=== PATIENT | female | born 1990 | race Asian ===

== ENCOUNTER 2022-03-20 18:15 | Emergency (ER) | payer MEDICAID ==
[~2022-03-20] VITALS: Ht 157.5 cm; Wt 62.2 kg
[2022-03-20 18:23] VITALS: TEMP 98
[2022-03-20 18:57] LABS: BASO % 0.5 % (0.0-2.0); EOS # 0.1 K/mm3 (0.0-0.7); EOS % 1.2 % (0.0-4.0); GRAN # 4.2 K/mm3 (1.4-6.5); GRAN % 65.3 % (42.2-75.2); HEMOGLOBIN 11.5 g/dl (12.5-16.0); LYMPH # 1.8 K/mm3 (1.2-3.4); MEAN CELL VOLUME 86 fl (80.0-100.0); MEAN CORPUSCULAR HEMOGLOBIN 31 pg (27-31); MEAN CORPUSCULAR HGB CONC 36 g/dl (33.0-37.0); MEAN PLATELET VOLUME 10.2 fl (7.4-10.4); MONO # 0.3 K/mm3 (0.1-0.6); MONO % 4.5 % (1.7-9.3); PLATELET COUNT 203 K/mm3 (130-400); RED BLOOD COUNT 3.76 M/mm3 (4.10-5.30); REDCELL DISTRIBUTION WIDTH-CV 13.2 % (11.5-14.5)
[2022-03-20 18:59] LABS: HEMATOCRIT 32.3 % (37.0-47.0)
[2022-03-20 19:14] LABS: ALBUMIN 2.9 gm/dL (3.5-5.0); BILIRUBIN,TOTAL 0.3 mg/dL (0.2-1.2); C-REACTIVE PROTEIN 0.17 mg/dL (0.00-0.50); CREATININE, serum 0.59 mg/dL (0.57-1.11); POTASSIUM 3.3 mmol/L (3.5-4.5); TOTAL PROTEIN 6.3 gm/dL (6.2-8.1)
--- NOTE | 2022-03-20 19:39 | NUR ---
PATIENT RESTING COMFORTABLY UPON LD RN ARRIVAL. PATIENT CC N/V. PATIENT DENIES LEAKING OF FLUID, CONTRACTIONS OR BLOODY SHOW. PLAN OF CARE DISCUSSED. PATIENT PLACED ON EFM.
[2022-03-20] MEDS ORDERED: ZOFRAN ODT4 MG PO (20:05)
[2022-03-20 20:36] VITALS: BP 108/65; PULSE 74
== END 2022-03-20 20:43 | disposition home or self-care (01) ==
LOC: COL.ER 18:15
PROVIDERS: Emergency Medicine
DX: O21.9 Vomiting of pregnancy, unspecified (principal); O26.893 Other specified pregnancy related conditions, third trimester; E87.6 Hypokalemia; O24.419 Gestational diabetes mellitus in pregnancy, unspecified control; Z3A.00 Weeks of gestation of pregnancy not specified
CPT/HCPCS: J2405; J2550; J7030

== ENCOUNTER → 2022-04-08 | Outpatient (CLI) | payer MEDICAID ==
[~2022-04-08] MED LIST: ZOFRAN ODT4 MG PO
== END ==
LOC: DIA.ED 07:31
DX: O24.419 Gestational diabetes mellitus in pregnancy, unspecified control (principal)
CPT/HCPCS: G0108

== ENCOUNTER → 2022-04-20 | Outpatient (CLI) | payer MEDICAID ==
[~2022-04-20] MED LIST changes: +IBU800 M1 PO; +PRENATAL; +PROZAC 20MG20 MG PO
[2022-05-13] VITALS (214 sets, daily range): O2SAT 94–100
== END ==
LOC: DIA.ED 12:55
DX: O24.419 Gestational diabetes mellitus in pregnancy, unspecified control (principal)
CPT/HCPCS: G0108

== ENCOUNTER → 2022-05-05 | Outpatient (CLI) | payer MEDICAID ==
[~2022-05-05] VITALS: Ht 157.5 cm; Wt 64.1 kg
[~2022-05-05] MED LIST changes: -IBU800 M1 PO
--- NOTE | 2022-05-05 14:59 | NUR ---
Pt arrived on unit ambulatory escorted by and with concerns for contractions. Pt is non-lebanese speaking, using a [employer] migratory worker pt reports feeling pain since last night, denies any leaking of fluid or vaginal bleeding and reports normal movement. EFM and toco monitors started. Vital signs WNL. SVE by this RN . Information reviewed with Dr. Sandra. See physician notifications for details.
--- NOTE | 2022-05-05 16:15 | NUR ---
Using a hungarian director of medical staff services, discharge instructions and follow up care reviewed with pt and at the bedside. Both verbalized an understanding, agreed with the plan and states no questions or concerns at this time.
[2022-05-05 16:18] VITALS: BP 128/72; PULSE 55
== END ==
LOC: LDRO 14:49
DX: Z34.93 Encounter for supervision of normal pregnancy, unspecified, third trimester (principal); Z3A.39 39 weeks gestation of pregnancy

== ENCOUNTER 2022-05-11 12:30 | Inpatient (IN) | payer MEDICAID ==
[~2022-05-11] VITALS: Ht 157.5 cm; Wt 57.9 kg
[2022-05-11] VITALS (19 sets, daily range): BP systolic 81–130; BP diastolic 44–88; PULSE 59–102; TEMP 97.6–97.9
[~2022-05-11 12:30] MED LIST changes: -PROZAC 20MG20 MG PO
--- NOTE | 2022-05-11 12:40 | NUR ---
PT ARRIVES AMBULATORY TO UNIT C/O VAGINAL BLEEDING AND "LEAKING FLUID" SINCE LAST NIGHT AT APPROXIMATELY 2030, REPORTS CLEAR FLUID. ROLES AT BEDSIDE ASSESSING PATIENT. PT UNABLE TO SPEAK ANDORRAN, PROFESSIONAL INTERPRETOR ON DEVICE TO INTERPRET VIETNAMESE LANGUAGE. AT BEDSIDE AND ABLE TO SPEAK MINIMAL ANDORRAN. VORB TO ADMIT PT FOR LABOR AND DELIVERY PER ROLES. EFM TRACING CATEGORY 1 STRIP, CONTRACTIONS Q 3-5 MINS
[2022-05-11] MEDS ORDERED: PROZAC 20MG20 MG PO (13:06)
--- NOTE | 2022-05-11 13:30 | NUR ---
PT SITTING ON EDGE OF BED IN PREPARATION FOR EPIDURAL PLACEMENT. DIFFICULTY TRACING EFM/TOCO DUE TO MATERNAL POSITIONING. ALL CONSENTS SIGNED AND EXPLAINED IN FULL VIA PROFESSIONAL TRANSLATION SERVICE, ISRAEL WALTER CRNA REVIEWS EPIDURAL PROCEDURE AND RISKS IN FULL VIA PROFESSIONAL TRANSLATION SERVICE. PT AND FOB DENY FURTHER QUESTIONS OR CONCERNS. 1342: TEST DOSE PER ISRAEL WALTER CRNA. PT TOLERATED PROCEDURE WELL.
[2022-05-11 13:42] LABS: BASO % 0.5 % (0.0-2.0); EOS # 0.1 K/mm3 (0.0-0.7); EOS % 1.1 % (0.0-4.0); GRAN # 4.3 K/mm3 (1.4-6.5); HEMOGLOBIN 12.4 g/dl (12.5-16.0); LYMPH # 1.9 K/mm3 (1.2-3.4); LYMPH % 28.2 % (20.0-51.0); MEAN CELL VOLUME 87 fl (80.0-100.0); MEAN CORPUSCULAR HEMOGLOBIN 30 pg (27-31); MEAN CORPUSCULAR HGB CONC 35 g/dl (33.0-37.0); MEAN PLATELET VOLUME 10.8 fl (7.4-10.4); MONO # 0.3 K/mm3 (0.1-0.6); MONO % 4.4 % (1.7-9.3); PLATELET COUNT 215 K/mm3 (130-400); RED BLOOD COUNT 4.11 M/mm3 (4.10-5.30); REDCELL DISTRIBUTION WIDTH-CV 13.6 % (11.5-14.5)
[2022-05-11 13:44] LABS: HEMATOCRIT 35.8 % (37.0-47.0)
--- NOTE | 2022-05-11 15:15 | NUR ---
1515: PT AGREEABLE TO SVE BY THIS NURSE, ALL COMMUNICATION VIA PROFESSIONAL TRANSLATION SYSTEM. PT /+2, BULGING FOREBAG NOTED WITH CHECK. RUPTURES WITH ASSESSMENT. PT COMPLETE FOLLOWING RUPTURE AND NOTIFIED. (SEE PHYS NOTIFICATION) 1532: OF VIABLE FEMALE INFANT PER AT THIS TIME. TIGHT NUCHAL X1 AT DELIVERY. FOB IN WAITING ROOM FOR CULTURAL PURPOSES. PT TOLERATED LABOR AND DELIVERY WELL. SMILING AFFECT. LOCHIA MODERATE AT DELIVERY. VORB FOR IM METHERGINE X1 PER , CHARGE NURSE NOTIFIED. 1536: OF PLACENTA. LOCHIA MODERATE, SMALL CLOTS NOTED. FUNDUS FIRM AT UMBILICUS WITH MASSAGE. IM METHERGINE ADMINISTERED PER ORDER. PERINEUM INTACT UPON ASSESSMENT FOLLOWING DELIVERY. PITOCIN BOLUS INFUSING PER PROTOCOL. LR INFUSING. VITAL SIGNS STABLE. PROFESSIONAL INTERPRETOR REMAINS AVAILABLE THROUGHOUT DELIVERY, PT DENIES QUESTIONS OR CONCERNS AT THIS TIME. 1545: LOCHIA CONTROLLED, FUNDUS FIRM AT UMBILICUS. NO CLOTS NOTED WITH MASSAGE. PITOCIN CONTINUES INFUSING. PT DENIES PAIN. PT DENIES NEEDS PER PROFESSIONAL INTERPRETOR. VITAL SIGNS STABLE. WILL CONTINUE WITH CARES PER PROTOCOL. FOB NOTIFIED IN WAITING ROOM OF DELIVERY AND COMES TO THE DELIVERY ROOM. PRESENT AND SUPPORTIVE OF MOTHER UPON ARRIVAL TO DELIVERY ROOM.
--- NOTE | 2022-05-11 16:30 | NUR ---
THIS NURSE ENCOURAGES PT TO EAT AND DRINK. PT AGREEABLE TO WATER BUT REFUSING MEAL AT HOSPITAL. STATES HE IS GOING TO GO HOME AND BRING IN FOOD FOR HER. FOB LEAVES AT THIS TIME TO GET FOOD. PT DENIES FURTHER NEEDS AT THIS TIME.
--- NOTE | 2022-05-11 17:49 | NUR ---
PT IN BED EATING MEAL PROVIDED BY AT THIS TIME. LOCHIA SCANT, FUNDUS REMAINS FIRM, VITAL SIGNS STABLE. WILL MOVE TO ROOM FOLLOWING MEAL PER PT REQUEST. PO TYLENOL, MOTRIN, AND STOOL SOFTENER GIVEN AT THIS TIME.
[2022-05-12] VITALS (256 sets, daily range): BP systolic 97–138; BP diastolic 68–88; PULSE 45–82; TEMP 97.1–97.9; O2SAT 96–100
--- NOTE | 2022-05-12 05:15 | NUR ---
PT REQUESTS STRONGER PAIN MED. SHE STATES SHE IS HAVING CRAMPING AND SHE WANTS TO TRY AND SLEEP NOW AFTER SHE FED THE BABY. DR ROLES NOTIFIED AND ORDERS NOTED. SEE MAR SHEET.
[2022-05-12] MEDS ORDERED: IBU800 M1 PO (11:29)
--- NOTE | 2022-05-12 18:35 | NUR ---
1835-PTS STATED PT IS UNRESPONSIVE. RN TO ROOM AND PT UNRESPONSIVE TO VOICE AND TO STERNAL RUB AND TACTILE STIMULATION. LV=338/88 PULSE=49 AND O2 SATS-99-100% ON RM AIR. GOOD RESP EFFORT NOTED DURING UNRESPONSIVE EPISODE. AT BEDSIDE AND RNS TO ROOM. STILL NO RESPONSE AFTER 5MIN AND DRIER HELPER NOTIFIED AND TO ROOM. GOOD RESP EFFORT AND VITALS NOTED AT THIS TIME. 184-BP-134/79 PULSE-45 AND SATS 99% ON RM AIR. 184- PT SHOWING SOME RESPONSE TO VOICE AND BP-133/76 PULSE-77 AND SATS-97% ON ROOM EFFORT WITH GOOD RESP EFFORT NOTED. HEART RATE INCREASES TO 80S AND THEN DECREASES TO 40-50'S AND NOTED ON PULSE OX. 185-IV ACCESS ATTAINED IN L HAND AND DR PETERSON NOTIFIED. 190-PT TO CT FOR CT OF HEAD AND CBC AND CMP DRAWN AT THIS TIME AND SENT TO LAB.
[2022-05-12 19:16] LABS: BASO # 0.1 K/mm3 (0.0-0.2); BASO % 0.6 % (0.0-2.0); EOS # 0.1 K/mm3 (0.0-0.7); EOS % 1.6 % (0.0-4.0); GRAN # 5.6 K/mm3 (1.4-6.5); GRAN % 68.7 % (42.2-75.2); HEMATOCRIT 32.6 % (37.0-47.0); HEMOGLOBIN 11.1 g/dl (12.5-16.0); LYMPH % 24.1 % (20.0-51.0); MEAN CELL VOLUME 88 fl (80.0-100.0); MEAN CORPUSCULAR HEMOGLOBIN 30 pg (27-31); MEAN CORPUSCULAR HGB CONC 34 g/dl (33.0-37.0); MEAN PLATELET VOLUME 10.3 fl (7.4-10.4); MONO # 0.4 K/mm3 (0.1-0.6); MONO % 4.5 % (1.7-9.3); PLATELET COUNT 186 K/mm3 (130-400); REDCELL DISTRIBUTION WIDTH-CV 13.7 % (11.5-14.5)
--- NOTE | 2022-05-12 19:30 | NUR ---
1929-REPORT GIVEN TO EQUITIES TRADER AND TO PHYSICIAN.
[2022-05-12 19:46] LABS: ALBUMIN 2.3 gm/dL (3.5-5.0); ALKALINE PHOSPHATASE 146 U/L (40-150); ANION GAP 11 mmol/L (7-16); AST,SGOT 14 U/L (5-34); BILIRUBIN,TOTAL 0.2 mg/dL (0.2-1.2); BLOOD UREA NITROGEN 8 mg/dL (7-19); CALCIUM 8.5 mg/dL (8.4-10.2); CARBON DIOXIDE 18 mmol/L (22-29); CHLORIDE 109 mmol/L (98-107); CREATININE, serum 0.74 mg/dL (0.57-1.11); GLUCOSE 109 mg/dL (70-99); POTASSIUM 3.6 mmol/L (3.5-4.5); SODIUM 138 mmol/L (136-145); TOTAL PROTEIN 5.5 gm/dL (6.2-8.1)
[2022-05-12 19:47] LABS: ALANINE AMINOTRANSFERASE < 6 U/L (0-55)
[2022-05-13] VITALS (285 sets, daily range): BP systolic 95–110; BP diastolic 59–81; PULSE 69–76; TEMP 97.7–98.7; O2SAT 96–100
[2022-05-13 06:18] LABS: BASO % 0.5 % (0.0-2.0); EOS # 0.1 K/mm3 (0.0-0.7); EOS % 1.8 % (0.0-4.0); GRAN # 4.5 K/mm3 (1.4-6.5); HEMOGLOBIN 10.7 g/dl (12.5-16.0); LYMPH # 2.7 K/mm3 (1.2-3.4); LYMPH % 34.7 % (20.0-51.0); MEAN CELL VOLUME 88 fl (80.0-100.0); MEAN CORPUSCULAR HEMOGLOBIN 30 pg (27-31); MEAN CORPUSCULAR HGB CONC 34 g/dl (33.0-37.0); MEAN PLATELET VOLUME 10.3 fl (7.4-10.4); MONO # 0.3 K/mm3 (0.1-0.6); MONO % 4.4 % (1.7-9.3); PLATELET COUNT 173 K/mm3 (130-400); RED BLOOD COUNT 3.57 M/mm3 (4.10-5.30); REDCELL DISTRIBUTION WIDTH-CV 13.6 % (11.5-14.5)
[2022-05-13 06:30] LABS: HEMATOCRIT 31.5 % (37.0-47.0)
[2022-05-13 06:40] LABS: CALCIUM 7.8 mg/dL (8.4-10.2); CREATININE, serum 0.73 mg/dL (0.57-1.11); MAGNESIUM 1.7 mg/dL (1.6-2.6); POTASSIUM 3.8 mmol/L (3.5-4.5)
--- NOTE | 2022-05-13 07:00 | NUR ---
BEDSIDE REPORT RECEIVED FROM CODY LANE. REPORTS NO EVENTS OVERNIGHT. PT SLEPT MAJORITY OF NIGHT AND OFFERED MINIMAL COMPLAINTS. C/O SOME LOWER ABDOMINAL CRAMPING. LIES SUPINE WITH HOB ELEVATED. NO S/S DISCOMFORT. PT'S AT THE BEDSIDE.
--- NOTE | 2022-05-13 09:33 | NUR ---
JANEL met with the patient to discuss discharge plan and to check resources. The patient is a refugee from [place] and moved here three months ago with her family. The patient speaks Slovenian. The patient delivered a baby girl on 05/11. She transferred to the ICU after becoming unresponsive. SW utilized the [employer] Bottle Packing Machine Cleaner services to translate. The patient lives in [place] with her , Arleth, and their seven children. She states that she now has six boys and two girls. She states that her is not working yet. She states that they have a carseat for baby, but they do not have a crib, bassinet, or Pack 'N Play for baby yet. She states that they do not have diapers or bottles for baby yet either, but that her plans to purchase the diapers and bottles before baby discharges from the hospital. She would be interested in getting help for the bassinet/pack 'n play. She had no other questions or concerns for nephrology social worker. JANEL provided her with [facility]'s Resource Guide. JANEL contacted Edna at [facility] about the pack 'n play/bassinet and additional assistance through their programs. Edna reports that she will get the patient enrolled in their porgram and she will deliver a baby starter kit to the hospital today. She states that she may not get the pack 'n play delivered today, but can deliver this to patient at a later time. She states that they will continue to drop off supplies to the patient, that they need until baby is 6 months old and they will continue to see her for their diaper program. Edna plans to contact this SW, once she delivers the supplies to the hospital. JANEL updated the patient's RN.
--- NOTE | 2022-05-13 11:36 | NUR ---
HOSPITALIST ROUNDS COMPLETED USES EXTENSION ASSOCIATE. EXTENSION ASSOCIATE NAME: GELY. SESSION ID: [id number].
--- NOTE | 2022-05-13 12:40 | NUR ---
Edna, with [facility], reports that she was able to get the Pack 'n Play and she delivered this and two bags of other baby supplies to the hospital. Bailee was going to deliver it to the nursery. JANEL contacted Mary in the nursery and she confirms they received the supplies.
--- NOTE | 2022-05-13 17:20 | NUR ---
PT AND GIVEN DISCHARGE INSTRUCTIONS WITH THE ASSISTANCE OF [facility] AND OB NURSE NIDIA. PT INSTRUCTED TO CALL [facility] TOMORROW AND SCHEDULE A FOLLOW UP APPOINTMENT WITH THEM DUE TO ABNORMAL ECHOCARDIOGRAM. PT AND VOICE UNDERSTANDING. ALL OB DISCHARGE INSTRUCTIONS COMPLETED BY CODY JACOB.
--- NOTE | 2022-05-13 17:41 | NUR ---
1700 -DISCHARGE INSTRUCTIONS GIVEN TO PT AND VIA VOYCE TIMBER SETTER LINE, VOICES GOOD UNDERSTANDING OF INSTRUCTIONS
--- NOTE | 2022-05-13 17:57 | NUR ---
1750 - DISMISSED AMBULATORY WITH AND BABY IN STABLE CONDITION
== END 2022-05-13 17:05 | disposition home or self-care (01) | DRG 806 ==
LOC: LDRO 12:30 → OB 12:53 → LDR 12:53 → OB 05-12 08:40 → ICU 05-12 19:00
PROVIDERS: Obstetrics & Gynecology; Physician Assistant; ADMIT Obstetrics & Gynecology
PROC: 10E0XZZ Delivery of Products of Conception, External Approach (ICD-10-PCS; principal; 2022-05-11)
DX: O99.344 Other mental disorders complicating childbirth (principal); O72.1 Other immediate postpartum hemorrhage; Z37.0 Single live birth; O69.81X0 Labor and delivery complicated by cord around neck, without compression, not applicable or unspecified; F32.A Depression, unspecified; O90.89 Other complications of the puerperium, not elsewhere classified; R55 Syncope and collapse; Z3A.40 40 weeks gestation of pregnancy
CPT/HCPCS: J0690; J2210; J2590; J3475; J7120

== ENCOUNTER 2022-05-21 16:52 | Day surgery (SDC) | payer MEDICAID ==
[2022-05-21] VITALS (9 sets, daily range): BP systolic 99–121; BP diastolic 57–86; PULSE 61–87; TEMP 97.9
[~2022-05-21 16:52] MED LIST changes: +IBU800 M1 PO; +PROZAC 20MG20 MG PO
--- NOTE | 2022-05-21 17:45 | NUR ---
1745- SPO2 98% ON ROOM AIR 1750- PT PROVIDED A BREAST PUMP AND INSTRUCTED HOW TO USE.
[2022-05-21] MEDS ORDERED: IBU800 M1 PO (20:29)
[2022-05-21] MEDS ORDERED: MACROBID 1100 MG/CAP PO (20:30)
--- NOTE | 2022-05-21 20:30 | NUR ---
Pt to room 222 by hospital bed with Surgery RN x 2 and Sol Roblero CRNA. Bedside report received. Lactated Ringers infusing by gravity to IV in left hand. Pt sleepy at this time be arousable. Plan of care reviewed with .
--- NOTE | 2022-05-21 21:05 | NUR ---
HR alarming on vitals machine reading 40 bpm. Pt alert and resting in bed, all other vitals within normal limits. Heart rhythm auscultated and sounds irregular at times. Telemetry notified and states she is in normal sinus rhythm at a rate of around 60 bpm with occasional PJC's.
--- NOTE | 2022-05-21 23:00 | NUR ---
Pt able to keep food down and ambulated to bathroom. Able to void 200 with small amount of bleeding noted. [employer] Marketing Analyst services used to review discharge instructions, pt and spouse verbalized understanding. 2310 - Pt and spouse seen ambulating off unit with belongings.
== END 2022-05-21 23:10 | disposition home or self-care (01) ==
LOC: OB 16:52 → SDCO 16:52 → OB 16:53 → SDCO 20:00
DX: O72.2 Delayed and secondary postpartum hemorrhage (principal); N39.0 Urinary tract infection, site not specified; O90.3 Peripartum cardiomyopathy
CPT/HCPCS: OP; J2704; J3010; J7120

== ENCOUNTER 2022-07-04 19:50 | Emergency (ER) | payer MEDICAID ==
[~2022-07-04 19:50] MED LIST changes: +MACROBID 1100 MG/CAP PO
[2022-07-04 20:16] LABS: BASO % 0.3 % (0.0-2.0); EOS % 0.2 % (0.0-4.0); GRAN # 5.1 K/mm3 (1.4-6.5); GRAN % 86.4 % (42.2-75.2); HEMOGLOBIN 11.9 g/dl (12.5-16.0); LYMPH # 0.6 K/mm3 (1.2-3.4); LYMPH % 10.2 % (20.0-51.0); MEAN CELL VOLUME 90 fl (80.0-100.0); MEAN CORPUSCULAR HEMOGLOBIN 29 pg (27-31); MEAN CORPUSCULAR HGB CONC 32 g/dl (33.0-37.0); MEAN PLATELET VOLUME 10.7 fl (7.4-10.4); MONO # 0.2 K/mm3 (0.1-0.6); MONO % 2.7 % (1.7-9.3); PLATELET COUNT 150 K/mm3 (130-400); RED BLOOD COUNT 4.09 M/mm3 (4.10-5.30); REDCELL DISTRIBUTION WIDTH-CV 12.2 % (11.5-14.5)
[2022-07-04 20:35] LABS: ALANINE AMINOTRANSFERASE 17 U/L (0-55); ALBUMIN 3.7 gm/dL (3.5-5.0); ALKALINE PHOSPHATASE 76 U/L (40-150); ANION GAP 10 mmol/L (7-16); AST,SGOT 23 U/L (5-34); BILIRUBIN,TOTAL 0.3 mg/dL (0.2-1.2); BLOOD UREA NITROGEN 9 mg/dL (7-19); CALCIUM 8.7 mg/dL (8.4-10.2); CARBON DIOXIDE 16 mmol/L (22-29); CHLORIDE 108 mmol/L (98-107); CREATININE, serum 0.85 mg/dL (0.57-1.11); GLUCOSE 113 mg/dL (70-99); HEMATOCRIT 36.8 % (37.0-47.0); MAGNESIUM 1.5 mg/dL (1.6-2.6); POTASSIUM 4.4 mmol/L (3.5-4.5); SODIUM 134 mmol/L (136-145); TOTAL PROTEIN 6.8 gm/dL (6.2-8.1)
[2022-07-04 20:51] LABS: COLLECTION METHOD CLEAN CATCH
[2022-07-04 20:55] LABS: TSH w REFLEX 0.641 uIU/mL (0.350-4.940)
[2022-07-04 20:56] LABS: TROPONIN-I < 0.010 ng/mL (0.00-0.033)
[2022-07-04 20:57] LABS: URINE APPEARANCE Clear (CLEAR/HAZY); URINE BLOOD TRACE-INTACT (NEGATIVE); URINE COLOR Straw (YELLOW); URINE GLUCOSE Negative (NEGATIVE); URINE KETONE Negative (NEGATIVE); URINE NITRATE Negative (NEGATIVE); URINE PROTEIN(semi-quant) Negative (NEGATIVE); URINE UROBILINOGEN 0.2 E.U/dL (0.2-1.0)
[2022-07-04 20:58] LABS: SQUAMOUS EPITHELIAL 0-2 /hpf (0-10); URINE BACTERIA None Seen /hpf (NONE SEEN); URINE RBC None Seen /hpf (0-2)
[2022-07-04 22:06] VITALS: TEMP 98.7
[2022-07-04 22:54] VITALS: BP 120/96; PULSE 101
[2022-07-10] MEDS ORDERED: IBU800 M1 PO (09:00)
== END 2022-07-04 22:52 | disposition home or self-care (01) ==
LOC: COL.ER 19:50
PROVIDERS: Emergency Medicine
DX: K52.9 Noninfective gastroenteritis and colitis, unspecified (principal); I49.9 Cardiac arrhythmia, unspecified; K83.8 Other specified diseases of biliary tract; E87.2 Acidosis; E83.42 Hypomagnesemia; Z20.822 Contact with and (suspected) exposure to COVID-19
CPT/HCPCS: J7120; Q9967

== ENCOUNTER 2022-07-06 11:43 | Observation (INO) | payer MEDICAID ==
[~2022-07-06] VITALS: Ht 152.4 cm; Wt 65.9 kg
[2022-07-06 12:11] LABS: HEMATOCRIT 37.5 % (37.0-47.0); HEMOGLOBIN 12.6 g/dl (12.5-16.0); MEAN CELL VOLUME 87 fl (80.0-100.0); MEAN CORPUSCULAR HEMOGLOBIN 29 pg (27-31); MEAN CORPUSCULAR HGB CONC 34 g/dl (33.0-37.0); MEAN PLATELET VOLUME 10.4 fl (7.4-10.4); PLATELET COUNT 131 K/mm3 (130-400); RED BLOOD COUNT 4.32 M/mm3 (4.10-5.30); REDCELL DISTRIBUTION WIDTH-CV 12.5 % (11.5-14.5)
[2022-07-06 12:25] LABS: BAND 45 % (0-10); LYMPHOCYTE 13 % (20.0-51.0); NEUTROPHILS 41 % (42.0-75.2); PLATELET ESTIMATE NORMAL (NORMAL)
[2022-07-06 12:29] LABS: ALANINE AMINOTRANSFERASE 14 U/L (0-55); ALBUMIN 3.7 gm/dL (3.5-5.0); ALKALINE PHOSPHATASE 77 U/L (40-150); ANION GAP 13 mmol/L (7-16); AST,SGOT 15 U/L (5-34); BILIRUBIN,TOTAL 0.4 mg/dL (0.2-1.2); BLOOD UREA NITROGEN 11 mg/dL (7-19); CALCIUM 8.6 mg/dL (8.4-10.2); CARBON DIOXIDE 15 mmol/L (22-29); CHLORIDE 107 mmol/L (98-107); CREATININE, serum 0.84 mg/dL (0.57-1.11); GLUCOSE 101 mg/dL (70-99); LIPASE 19 U/L (8-78); POTASSIUM 3.2 mmol/L (3.5-4.5); SODIUM 135 mmol/L (136-145); TOTAL PROTEIN 7.2 gm/dL (6.2-8.1)
[2022-07-06 12:38] LABS: TROPONIN-I < 0.010 ng/mL (0.00-0.033)
[2022-07-06] MEDS ORDERED: COREG 3.123.125 MG/T PO (13:27)
[2022-07-06] MEDS ORDERED: CLEOCIN HC150 MG/CAP PO (13:27)
[2022-07-06 13:53] LABS: COLLECTION METHOD CLEAN CATCH
[2022-07-06 14:18] LABS: SQUAMOUS EPITHELIAL 0-2 /hpf (0-10); URINE BACTERIA Rare /hpf (NONE SEEN); URINE RBC 0-2 /hpf (0-2)
[2022-07-06 14:19] LABS: PH 6.5 (5.0-8.5); URINE APPEARANCE Clear (CLEAR/HAZY); URINE COLOR Yellow (YELLOW); URINE GLUCOSE Negative (NEGATIVE); URINE KETONE TRACE (NEGATIVE); URINE PROTEIN(semi-quant) Negative (NEGATIVE)
[2022-07-06 14:20] LABS: URINE BLOOD 2+ (NEGATIVE); URINE NITRATE Negative (NEGATIVE); URINE UROBILINOGEN 0.2 E.U/dL (0.2-1.0)
[2022-07-06 16:39] VITALS: BP 105/78; PULSE 90; TEMP 98.7
--- NOTE | 2022-07-06 17:59 | NUR ---
Vancomycin Initial Dosing Pharmacy Note Ordering provider: Gina Zamora E., MD Indication/duration: ? Meningitis LABS: WBC 3.9, SCR 0.84, CRCL ~80 Recommendation: VANCOMYCIN 17 MG/KG Loading dose: 1.25 grams Maintenance dose: 1 gram every 8 hours Trough goal: 15-20 ug/mL. TROUGH 07/07 @1730
[2022-07-06 19:12] VITALS: BP 90/61; PULSE 95; TEMP 99.2
--- NOTE | 2022-07-06 19:54 | NUR ---
ADMISSION INTAKE AND ASSESSMENT COMPLETED. MED REC UPDATED. PT AND FAMILY ORIENTED TO ROOM. ABLE TO TRANSLATE FOR PT. PT COMPLAINS OF GENERALIZED BODY ACHES AND HEADACHE. DENIES ANY NEEDS AT THIS TIME. SHIFT REPORT PASSED ALONG TO CODY TREVIZO.
--- NOTE | 2022-07-06 20:38 | NUR ---
PATIENT ITCHY AND RED. IV VANCO AND ACYCLOVIR STOPPED. ATTEMPTED TO CONTACT YAMILE FAN, NO ANSWER. WILL TRY AGAIN
[2022-07-06 20:50] VITALS: BP 113/75; PULSE 79; TEMP 98.9
--- NOTE | 2022-07-06 21:14 | NUR ---
2049: PATIENT CALLED OUT STATING PATIENT UNRESPONSIVE. PATIENT RECENTLY WENT TO RESTROOM. NO VAGAL RESPONSE APPARENT ON TELEMTRY. PULSE PRESENT, PATIENT STERNAL RUBBED. MINIMAL RESPONSIVE. VS STABLE. BG WNL. YAMILE FAN CALLED TO BEDSIDE. EKG OBTAINED. PATIENT ALERTNESS SLOWLY INCREASING PER THIS HAS HAPPENED A FEW TIMES AT HOME. PATIENT NOT FOLLOWING COMMANDS, ASKED TO SQUEEZE FINGERS AND PATIENT WILL SHAKE HEAD NO. PER YAMILE CONTINUE TO MONITOR. 2119: PATIENT ABLE TO SQUEEZE FINGERS AND FOLLOW COMMANDS.
[2022-07-06 23:18] VITALS: BP 99/58; PULSE 49
[2022-07-07 03:20] VITALS: BP 104/70; PULSE 75
--- NOTE | 2022-07-07 05:57 | NUR ---
PATIENT HAD X1 EPISODE OF UNRESPONSIVENESS. TOOK SEVERAL MINUTES TO BE ABLE TO RESPOND. PATIENT ALSO HAD REDNESS AND ITCHING WITH INFUSION OF VANCO AND ACYCLOVIR, INFUSIONS WERE STOPPED AND PATIENT GIVEN BENADRYL. OTHERWISE UNEVENTFUL NIGHT. REMAINED AT BEDSIDE DURING NIGHT. CALL LIGHT IN REACH.
--- NOTE | 2022-07-07 06:59 | NUR ---
Report given to CODY Goodman
[2022-07-07 08:02] VITALS: BP 101/70; PULSE 79; TEMP 98.1
[2022-07-07 08:31] LABS: HEMOGLOBIN 11.7 g/dl (12.5-16.0); MEAN CELL VOLUME 86 fl (80.0-100.0); MEAN CORPUSCULAR HEMOGLOBIN 29 pg (27-31); MEAN CORPUSCULAR HGB CONC 34 g/dl (33.0-37.0); MEAN PLATELET VOLUME 9.8 fl (7.4-10.4); PLATELET COUNT 119 K/mm3 (130-400); RED BLOOD COUNT 4.05 M/mm3 (4.10-5.30); REDCELL DISTRIBUTION WIDTH-CV 12.7 % (11.5-14.5)
[2022-07-07 08:35] LABS: HEMATOCRIT 34.9 % (37.0-47.0)
[2022-07-07 08:48] LABS: CALCIUM 7.8 mg/dL (8.4-10.2); CREATININE, serum 0.72 mg/dL (0.57-1.11)
[2022-07-07 09:08] LABS: BAND 24 % (0-10); LYMPHOCYTE 24 % (20.0-51.0); NEUTROPHILS 42 % (42.0-75.2); PLATELET ESTIMATE DECREASED (NORMAL)
[2022-07-07 12:01] VITALS: BP 99/69; PULSE 68; TEMP 97.9
--- NOTE | 2022-07-07 15:46 | NUR ---
PT DID NOT TOLERATE IV POTASSIUM REPLACEMENT, ORDER CHANGED FROM IV TO PO
--- NOTE | 2022-07-07 16:21 | NUR ---
PT RETURNED FROM LP, PT EDUCATED TO REMAIN FLAT FOR THE NEXT 8HRS
[2022-07-07 16:30] VITALS: BP 113/74; PULSE 55; TEMP 98.1
[2022-07-07 16:30] LABS: GLUCOSE,CSF 51 mg/dL (40-70); TOTAL PROTEIN,CSF 23 mg/dL (15-45)
[2022-07-07 17:11] LABS: CSF APPEARANCE BLOODY; CSF COLOR COLORLESS; CSF RBC 6 /mm3 (0-0)
[2022-07-07 17:26] LABS: CSF MONONUCLEAR 100 % (70-100); CSF POLYMORPHONUCLEAR 0 % (0-6)
[2022-07-07 19:44] VITALS: BP 102/72; PULSE 73; TEMP 98.3
--- NOTE | 2022-07-07 22:07 | NUR ---
Shift assessment preformed. Scheduled medications given. Patient's carrot buncher noted to be weak bilaterally, remainder of Neuro check WNL. VSS. Patient A&O. Patient states that she is having some "mild" back pain from her LP earlier in the day. PRN tylenol given. Patient will be done with flat time at 2200. Patient denies any further pain, discomfort, SOA, or needs at this time. Mill Controller service used for all communication. Mill Controller was Ej [id number]
[2022-07-08] VITALS (8 sets, daily range): BP systolic 103–118; BP diastolic 62–87; PULSE 54–98; TEMP 97.6–98.4
[2022-07-08] MEDS ORDERED: PROBIOTIC ACID1 EAC3 PO
--- NOTE | 2022-07-08 04:33 | NUR ---
Patient has had an uneventful night. VSS. Neuro assessment has remained the same throughout this shift. No s/s of pain or discomfort at this time. Call light in reach.
[2022-07-08 06:47] LABS: HEMOGLOBIN 12.1 g/dl (12.5-16.0); MEAN CELL VOLUME 87 fl (80.0-100.0); MEAN CORPUSCULAR HEMOGLOBIN 29 pg (27-31); MEAN CORPUSCULAR HGB CONC 34 g/dl (33.0-37.0); MEAN PLATELET VOLUME 10.5 fl (7.4-10.4); PLATELET COUNT 147 K/mm3 (130-400); RED BLOOD COUNT 4.15 M/mm3 (4.10-5.30); REDCELL DISTRIBUTION WIDTH-CV 12.3 % (11.5-14.5)
[2022-07-08 07:05] LABS: CALCIUM 8.3 mg/dL (8.4-10.2); CREATININE, serum 0.77 mg/dL (0.57-1.11); POTASSIUM 3.9 mmol/L (3.5-4.5)
--- NOTE | 2022-07-08 07:26 | NUR ---
VSS, PT A&O X4, PT ABLE TO MAKE NEEDS KNOWN, PT RESTING IN BED, REPORTS HEADACHE, FALL PRECAUTIONS IN PLACE, CALL LIGHT IN REACH
[2022-07-08 08:26] LABS: BAND 18 % (0-10); EOSINOPHIL 5 % (0-4); LYMPHOCYTE 32 % (20.0-51.0); NEUTROPHILS 37 % (42.0-75.2)
[2022-07-08 08:27] LABS: PLATELET ESTIMATE NORMAL (NORMAL)
[2022-07-08] MEDS ORDERED: TOPROL XL 25MG25 MG PO (09:01)
[2022-07-09 00:45] VITALS: BP 102/69; PULSE 57; TEMP 98.5
[2022-07-09 03:09] VITALS: BP 106/69; PULSE 55; TEMP 97.7
--- NOTE | 2022-07-09 03:57 | NUR ---
Patient has had an uneventful night. VSS. Neuro checks have remained unchanged. No s/s of pain, discomfort, SOA, or further needs at this time. Call light in reach.
[2022-07-09 08:00] VITALS: BP 104/72; PULSE 65; TEMP 98
--- NOTE | 2022-07-09 09:15 | NUR ---
VSS, PT A&O X4, PT ABLE TO MAKE NEEDS KNOWN, PROTOTYPE MODEL MAKER UTILIZED, FALL PRECAUTIONS IN PLACE
--- NOTE | 2022-07-09 10:30 | NUR ---
On 07/08/22, Truck Loader Overhead Crane received a phone call that patient was scheduled to discharge earlier today, however she and her advised they cannot go home as patient is weak and dizzy. SW advised she would try to seek rehab options, but that likely only option would be home as patient only has Medicaid. SW gave referral to [facility] and [facility]. On 07/09/22, SW reviewed with IPR Director Dior and likely they will not accept today. Zuri at [facility] is reviewing referral and inquired about HELP syndrome. SW reviewed this with Hospitalist who advised this is ruled out. SW met with patient to discuss discharge planning. Patient lives in [place] with her , Arleth and their eight children. Her youngest child is a one month old infant. Patient reports she has everything she needs for baby. Patient advised they had to switch formulas a couple days ago but it's working. Patient is open to SW contacting [facility] and giving a referral for mother and baby services. SW left a message for Maternal and Child Health program. Patient does not use any DME at home and advised she has a neighbor that occasionally helps with the children as needed. SW asked about transportation to follow up appointments and patient stated her can drive her. SW explained discharge plan is likely to home today and patient stated yes. SW followed up with patient again as her is now at bedside. Patient's expressed great concern with discharge home today. Arleth stated that patient is dizzy and will just fall again if she goes home. SW offered assistance securing a front wheeled walker but Arleth declined stating walker's were for disabled people and that patient is just dizzy. Arleth did not feel this would help. JANEL again explained discharge plan would be home today. SW asked Hospitalist to speak with patient again now that is here. SW utilized [employer] translation system for above conversations as patient and her speak yi. (ID #[id number], [id number])
--- NOTE | 2022-07-09 12:02 | NUR ---
Line Installer contacted [facility] and faxed referral and orders for home health nursing.
[2022-07-09 12:48] LABS: HSV 2 DNA PCR QUAL Not Detected (())
--- NOTE | 2022-07-09 12:48 | NUR ---
PT DISMISSED TODAY TO HOME WITH HOME HEALTH, PT AND PT'S EDUCATED ON DISMISSAL INSTRUCTIONS/MEDICATION INSTRUCTIONS/FOLLOW UP INSTRUCTIONS, QUESTIONS ANSWERED AT BEDSIDE PRIOR TO DISMISSAL, PT AND PT'S VOICED NO OTHER QUESTIONS/CONCERNS AT TIME OF DISMISSAL, IV DC'D, PT TRANSPORTED TO EXIT PER WC, NO FURTHER CONCERNS
[2022-07-10] MEDS ORDERED: IBU800 M1 PO (09:00)
== END 2022-07-09 12:53 | disposition home or self-care (01) ==
LOC: COL.ER 11:43 → MEDICAL 14:09
PROVIDERS: Emergency Medicine; Obstetrics & Gynecology; Physician Assistant; Psychiatry & Neurology Neurology; ADMIT Hospitalist
DX: R50.9 Fever, unspecified (principal); R11.10 Vomiting, unspecified; R51.9 Headache, unspecified; H53.9 Unspecified visual disturbance; I48.91 Unspecified atrial fibrillation; I47.1 Supraventricular tachycardia; R55 Syncope and collapse; E87.6 Hypokalemia; O90.3 Peripartum cardiomyopathy; I50.20 Unspecified systolic (congestive) heart failure; K04.7 Periapical abscess without sinus; F32.A Depression, unspecified; G93.40 Encephalopathy, unspecified; Z20.822 Contact with and (suspected) exposure to COVID-19; Z79.899 Other long term (current) drug therapy; F43.22 Adjustment disorder with anxiety
CPT/HCPCS: A9270; A9575; G0378; J0133; J0153; J0696; J1650; J2405; J3370; J3480; J7040; J7050; J7120

== ENCOUNTER 2022-07-24 10:31 | Emergency (ER) | payer MEDICAID ==
[~2022-07-24] VITALS: Ht 152.4 cm; Wt 57.3 kg
[~2022-07-24 10:31] MED LIST changes: +CLEOCIN HC150 MG/CAP PO; +COREG 3.123.125 MG/T PO; +PROBIOTIC ACID1 EAC3 PO; +TOPROL XL 25MG25 MG PO
[2022-07-24 11:25] LABS: BASO # 0.1 K/mm3 (0.0-0.2); BASO % 0.6 % (0.0-2.0); EOS # 0.1 K/mm3 (0.0-0.7); EOS % 0.5 % (0.0-4.0); GRAN # 8.1 K/mm3 (1.4-6.5); GRAN % 83.7 % (42.2-75.2); HEMOGLOBIN 11.8 g/dl (12.5-16.0); LYMPH # 0.8 K/mm3 (1.2-3.4); LYMPH % 7.9 % (20.0-51.0); MEAN CELL VOLUME 85 fl (80.0-100.0); MEAN CORPUSCULAR HEMOGLOBIN 29 pg (27-31); MEAN CORPUSCULAR HGB CONC 34 g/dl (33.0-37.0); MEAN PLATELET VOLUME 10.2 fl (7.4-10.4); MONO # 0.7 K/mm3 (0.1-0.6); PLATELET COUNT 229 K/mm3 (130-400); RED BLOOD COUNT 4.09 M/mm3 (4.10-5.30); REDCELL DISTRIBUTION WIDTH-CV 13.1 % (11.5-14.5)
[2022-07-24 11:43] LABS: HEMATOCRIT 34.8 % (37.0-47.0)
[2022-07-24 12:29] LABS: ALANINE AMINOTRANSFERASE 20 U/L (0-55); ALBUMIN 3.7 gm/dL (3.5-5.0); ALKALINE PHOSPHATASE 81 U/L (40-150); ANION GAP 12 mmol/L (7-16); AST,SGOT 17 U/L (5-34); BILIRUBIN,TOTAL 0.6 mg/dL (0.2-1.2); BLOOD UREA NITROGEN 10 mg/dL (7-19); CARBON DIOXIDE 18 mmol/L (22-29); CHLORIDE 108 mmol/L (98-107); CREATININE, serum 0.82 mg/dL (0.57-1.11); GLUCOSE 116 mg/dL (70-99); LIPASE 42 U/L (8-78); MAGNESIUM 1.6 mg/dL (1.6-2.6); PHOSPHOROUS 3.4 mg/dL (2.3-4.7); POTASSIUM 3.6 mmol/L (3.5-4.5); SODIUM 138 mmol/L (136-145); TOTAL PROTEIN 6.9 gm/dL (6.2-8.1)
[2022-07-24 12:39] LABS: TROPONIN-I < 0.010 ng/mL (0.00-0.033)
[2022-07-24 14:09] VITALS: TEMP 97.7
[2022-07-24 14:34] LABS: COLLECTION METHOD CLEAN CATCH
[2022-07-24 14:41] LABS: PH 5.5 (5.0-8.5); URINE APPEARANCE Clear (CLEAR/HAZY); URINE BLOOD Negative (NEGATIVE); URINE COLOR Yellow (YELLOW); URINE GLUCOSE Negative (NEGATIVE); URINE KETONE Negative (NEGATIVE); URINE NITRATE Negative (NEGATIVE); URINE PROTEIN(semi-quant) Negative (NEGATIVE); URINE UROBILINOGEN 0.2 E.U/dL (0.2-1.0)
[2022-07-24 14:43] LABS: MUCOUS Present (NOT PRESENT); URINE BACTERIA None Seen /hpf (NONE SEEN); URINE RBC 0-2 /hpf (0-2); URINE WBC 0-2 /hpf (0-2)
[2022-07-24] MEDS ORDERED: ZOFRAN ODT4 MG PO (15:11)
[2022-07-24] MEDS ORDERED: DOXYCYCLINE 10100 MG PO (15:13)
[2022-07-24 15:50] VITALS: BP 111/72; PULSE 84
== END 2022-07-24 15:56 | disposition home or self-care (01) ==
LOC: COL.ER 10:31
PROVIDERS: Emergency Medicine
DX: R19.7 Diarrhea, unspecified (principal); N71.9 Inflammatory disease of uterus, unspecified; R11.0 Nausea
CPT/HCPCS: J2550; J7120; Q9967

== ENCOUNTER → 2023-11-11 | Outpatient (CLI) | payer MEDICAID ==
[~2023-11-11] MED LIST changes: +ANTIVERT 25MG25 MG PO; +CARAFATE S1 GM/10 ML PO; +CEPHALEXIN500 M1 PO; +DOXYCYCLINE 10100 MG PO; +JARDIANCE10 PO
== END ==
LOC: COL.RAD 13:15
DX: M25.551 Pain in right hip (principal)

== ENCOUNTER 2024-03-12 14:41 | Emergency (ER) | payer MEDICAID ==
[~2024-03-12] VITALS: Ht 152.4 cm; Wt 72.7 kg
[2024-03-12 14:43] VITALS: TEMP 99.2
[2024-03-12] MEDS ORDERED: LR 1,000 ML IV ONE (15:00)
[2024-03-12] MEDS ORDERED: Ondansetron 4 MG/2 ML VIAL IV ONE (15:00)
[2024-03-12 15:26] LABS: BASO % 0.5 % (0.0-2.0); EOS # 0.2 K/mm3 (0.0-0.7); EOS % 2.8 % (0.0-4.0); GRAN # 3.6 K/mm3 (1.4-6.5); GRAN % 61.3 % (42.2-75.2); HEMATOCRIT 38.3 % (37.0-47.0); HEMOGLOBIN 13.1 g/dl (12.5-16.0); LYMPH # 1.8 K/mm3 (1.2-3.4); MEAN CELL VOLUME 87 fl (80.0-100.0); MEAN CORPUSCULAR HEMOGLOBIN 30 pg (27-31); MEAN CORPUSCULAR HGB CONC 34 g/dl (33.0-37.0); MEAN PLATELET VOLUME 10.1 fl (7.4-10.4); MONO # 0.2 K/mm3 (0.1-0.6); MONO % 4.2 % (1.7-9.3); PLATELET COUNT 199 K/mm3 (130-400); RED BLOOD COUNT 4.41 M/mm3 (4.10-5.30)
[2024-03-12 15:50] LABS: ALBUMIN 3.7 g/dL (3.5-5.0); BILIRUBIN,TOTAL 0.4 mg/dL (0.2-1.2); C-REACTIVE PROTEIN 0.34 mg/dL (0.00-0.50); CALCIUM 9.4 mg/dL (8.4-10.2); CREATININE, serum 0.76 mg/dL (0.57-1.11); POTASSIUM 3.6 mEq/L (3.5-4.5); TOTAL PROTEIN 7.1 g/dl (6.2-8.1)
[2024-03-12 17:11] LABS: COLLECTION METHOD CLEAN CATCH
[2024-03-12 17:16] LABS: URINE APPEARANCE CLEAR (CLEAR/HAZY); URINE BLOOD NEGATIVE (NEGATIVE); URINE COLOR YELLOW (YELLOW); URINE GLUCOSE NEGATIVE (NEGATIVE); URINE KETONE NEGATIVE (NEGATIVE); URINE NITRATE NEGATIVE (NEGATIVE); URINE PROTEIN(semi-quant) NEGATIVE (NEGATIVE); URINE UROBILINOGEN 0.2 E.U/dL (0.2-1.0)
[2024-03-12] MEDS ORDERED: Acetaminophen 500 MG TAB PO ONE (17:45)
[2024-03-12 18:17] VITALS: BP 112/89; PULSE 77
== END 2024-03-12 18:17 | disposition home or self-care (01) ==
LOC: COL.ER 14:41
PROVIDERS: Family Medicine
DX: R53.83 Other fatigue (principal); R06.02 Shortness of breath
CPT/HCPCS: J2405; J7120

== ENCOUNTER 2024-06-24 14:18 | Emergency (ER) | payer MEDICAID ==
[2024-06-24 14:22] VITALS: TEMP 98
[2024-06-24] MEDS ORDERED: Morphine 4 MG/ML VIAL IV PRN (14:45)
[2024-06-24 14:52] LABS: BASO % 0.8 % (0.0-2.0); EOS # 0.2 K/mm3 (0.0-0.7); EOS % 4.5 % (0.0-4.0); GRAN % 57.1 % (42.2-75.2); HEMATOCRIT 40.2 % (37.0-47.0); HEMOGLOBIN 13.4 g/dl (12.5-16.0); LYMPH # 1.8 K/mm3 (1.2-3.4); LYMPH % 33.1 % (20.0-51.0); MEAN CELL VOLUME 88 fl (80.0-100.0); MEAN CORPUSCULAR HEMOGLOBIN 29 pg (27-31); MEAN CORPUSCULAR HGB CONC 33 g/dl (33.0-37.0); MONO # 0.2 K/mm3 (0.1-0.6); MONO % 4.3 % (1.7-9.3); PLATELET COUNT 189 K/mm3 (130-400); RED BLOOD COUNT 4.57 M/mm3 (4.10-5.30); REDCELL DISTRIBUTION WIDTH-CV 12.9 % (11.5-14.5)
[2024-06-24 15:07] LABS: COLLECTION METHOD CLEAN CATCH
[2024-06-24 15:11] LABS: ALANINE AMINOTRANSFERASE 34 U/L (0-55); ALKALINE PHOSPHATASE 100 U/L (40-150); ANION GAP 9 mmol/L (7-16); AST,SGOT 21 U/L (5-34); BILIRUBIN,TOTAL 0.5 mg/dL (0.2-1.2); BLOOD UREA NITROGEN 10 mg/dL (7-19); CALCIUM 9.4 mg/dL (8.4-10.2); CHLORIDE 108 mEq/L (98-107); CREATININE, serum 0.76 mg/dL (0.57-1.11); GLUCOSE 136 mg/dL (70-99); POTASSIUM 3.9 mEq/L (3.5-4.5); SODIUM 138 mEq/L (136-145); TOTAL PROTEIN 7.3 g/dl (6.2-8.1)
[2024-06-24 15:17] LABS: PH 5.5 (5.0-8.5); URINE APPEARANCE CLEAR (CLEAR/HAZY); URINE BLOOD NEGATIVE (NEGATIVE); URINE COLOR YELLOW (YELLOW); URINE GLUCOSE TRACE (NEGATIVE); URINE KETONE NEGATIVE (NEGATIVE); URINE NITRATE NEGATIVE (NEGATIVE); URINE PROTEIN(semi-quant) NEGATIVE (NEGATIVE)
[2024-06-24] MEDS ORDERED: Iohexol 300 - 100 ML VIAL IV ONE (15:38)
[2024-06-24 15:41] LABS: TROPONIN-I < 0.010 ng/mL (0.00-0.033)
[2024-06-24] MEDS ORDERED: NS 100 ML IV SCH (15:42)
[2024-06-24] MEDS ORDERED: BENTYL 20MG20 MG/TAB PO (17:33)
[2024-06-24] MEDS ORDERED: PROTONIX 40MG T40 MG PO (17:33)
[2024-06-24 18:06] VITALS: BP 115/83; PULSE 68
== END 2024-06-24 18:09 | disposition home or self-care (01) ==
LOC: COL.ER 14:18
PROVIDERS: Personal Emergency Response Attendant
DX: R07.89 Other chest pain (principal); R10.9 Unspecified abdominal pain
CPT/HCPCS: J2270; Q9967

== ENCOUNTER 2024-06-27 00:24 | Emergency (ER) | payer MEDICAID ==
[~2024-06-27 00:24] MED LIST changes: +BENTYL 20MG20 MG/TAB PO; +PROTONIX 40MG T40 MG PO
[2024-06-27 01:10] VITALS: TEMP 98.2
[2024-06-27] MEDS ORDERED: diphenhydrAMINE 50 MG/ML 1 ML VIAL IM ONE (01:45)
[2024-06-27 03:13] VITALS: BP 105/73; PULSE 66
== END 2024-06-27 03:13 | disposition home or self-care (01) ==
LOC: COL.ER 00:24
DX: R51.9 Headache, unspecified (principal)
CPT/HCPCS: J1200; J2765

== ENCOUNTER 2024-08-16 21:23 | Emergency (ER) | payer MEDICAID ==
[~2024-08-16] VITALS: Ht 154.9 cm; Wt 68.1 kg
[2024-08-16 21:51] VITALS: TEMP 98.3
[2024-08-17] MEDS ORDERED: diphenhydrAMINE 25 MG CAP PO ONE (01:00)
[2024-08-17 01:23] LABS: BASO # 0.1 K/mm3 (0.0-0.2); BASO % 0.9 % (0.0-2.0); EOS # 0.4 K/mm3 (0.0-0.7); EOS % 5.1 % (0.0-4.0); GRAN # 3.5 K/mm3 (1.4-6.5); GRAN % 45.7 % (42.2-75.2); LYMPH # 3.3 K/mm3 (1.2-3.4); LYMPH % 42.3 % (20.0-51.0); MEAN CELL VOLUME 85 fl (80.0-100.0); MEAN CORPUSCULAR HEMOGLOBIN 29 pg (27-31); MEAN CORPUSCULAR HGB CONC 34 g/dl (33.0-37.0); MEAN PLATELET VOLUME 10.1 fl (7.4-10.4); MONO # 0.5 K/mm3 (0.1-0.6); MONO % 5.9 % (1.7-9.3); PLATELET COUNT 219 K/mm3 (130-400); REDCELL DISTRIBUTION WIDTH-CV 12.6 % (11.5-14.5)
[2024-08-17 01:41] LABS: ALBUMIN 3.9 g/dL (3.5-5.0); BILIRUBIN,TOTAL 0.3 mg/dL (0.2-1.2); CALCIUM 9.6 mg/dL (8.4-10.2); CREATININE, serum 0.83 mg/dL (0.57-1.11); POTASSIUM 3.7 mEq/L (3.5-4.5); TOTAL PROTEIN 7.2 g/dl (6.2-8.1)
[2024-08-17 02:37] LABS: C-REACTIVE PROTEIN 0.42 mg/dL (0.00-0.50)
[2024-08-17] MEDS ORDERED: PREDNISONE50 MG PO (02:50)
[2024-08-17] MEDS ORDERED: Home Meclizine 12.5 MG #4 TABS/PACK PO ONE (03:00)
[2024-08-17] MEDS ORDERED: predniSONE 10 MG TAB PO ONE (03:00)
[2024-08-17 03:29] VITALS: BP 100/61; PULSE 88
== END 2024-08-17 03:29 | disposition home or self-care (01) ==
LOC: COL.ER 21:23
PROVIDERS: Emergency Medicine
DX: R42 Dizziness and giddiness (principal); T78.40XA Allergy, unspecified, initial encounter
CPT/HCPCS: J7512